=== PATIENT | female | born 1970 | race Caucasian/White ===

== ENCOUNTER 2017-08-06 09:27 | Day surgery (SDC) | payer OTHER ==
[2017-08-06] MEDS ORDERED: PROPOFOL 20 ML (12:41)
[2017-08-06] MEDS ORDERED: LIDOCAINE 2% (SDV) 5 ML INJ (12:41)
[2017-08-06] MEDS ORDERED: ONDANSETRON 4 MG INJ (12:42)
[2017-08-06] MEDS ORDERED: METOCLOPRAMIDE 10 MG INJ (12:42)
[2017-08-06] MEDS ORDERED: DEXAMETHASONE 4 MG/ML 1 ML INJ (12:42)
[2017-08-06] MEDS ORDERED: FENTAnyl 50 MCG/ML VIAL (12:43)
[2017-08-06] MEDS ORDERED: ONDANSETRON 4 MG INJ IV (13:00)
[2017-08-06] MEDS ORDERED: FENTAnyl 50 MCG/ML VIAL IV (13:00)
[2017-08-06] MEDS ORDERED: KETOROLAC 30 MG INJ IV ×2 (13:00→13:30)
[2017-08-06] MEDS ORDERED: HYDROmorphONE (0.2 MG/ML) 10ML SYG IV (13:00)
[2017-08-06] MEDS ORDERED: CEFAZOLIN 1 GM INJ (13:06)
[2017-08-06] MEDS ORDERED: IBUPROFEN 600 MG TAB PO (13:30)
== END 2017-08-06 15:55 | disposition home or self-care (01) ==
LOC: SDS 09:27
DX: N85.00 Endometrial hyperplasia, unspecified (principal)
CPT/HCPCS: 58120; 88305